=== PATIENT | female | born 1980 | race Caucasian/White ===

== ENCOUNTER 2017-03-13 01:36 | Emergency (ER) | payer MEDICAID, OTHER ==
[~2017-03-13] VITALS: Ht 157.5 cm; Wt 72.0 kg
[~2017-03-13 01:36] MED LIST: CALC-649 PO; FERR27TA PO; FOLI0.4T2 PO; METF-480 PO; METF500T4 PO; PREN1TAB49 PO
[2017-03-13 01:41] VITALS: Ht 157.5 cm; Wt 72.0 kg
[2017-03-13] MEDS ORDERED: ACETAMINOPHEN 500 MG TAB PO STA (02:05)
[2017-03-13] MEDS ORDERED: LIDOCAINE 1% (MDV) 20 ML INJ ONE (02:23)
[2017-03-13] MEDS ORDERED: CEFTRIAXONE 1 GM INJ IM ONE (02:30)
[2017-03-13] MEDS ORDERED: IBUPROFEN 800 MG TAB PO ONE (02:30)
[2017-03-13] MEDS ORDERED: LIDOCAINE 1% (MDV) 20 ML INJ SC ONE (02:30)
--- NOTE | 2017-03-13 02:40 | ERD ---
ER Documentation Chief Complaint Date/Time DATE: 03/13/17 TIME: 02:00 Chief Complaint fever/chills/body aches x 3 days HPI 36-year-old female presents emergency department for fever, chills, generalized body ache for 3 days. She also added that she has productive cough for more than 3 days. LMP: Stated that it just started. A0. Denies headache, dizziness, blurred vision, neck pain, neck stiffness, throat pain, difficulty swallowing, chest pain, abdominal pain, nausea, vomiting, constipation, diarrhea, loss of bowel bladder control, dysuria, vaginal bleeding , vaginal discharge, recent long travel, recent travel, recent exposure to any illness, recent antibiotic use in the last 3 months, numbness or tingling sensation, difficulty walking. No known drug allergies. No past medical history. Surgery: . Does not take any prescription medication at home. Social: Works as a optimization specialist. Denies smoking, use of alcohol, use of illegal drugs. ROS All systems reviewed and are negative except as per history of present illness. Medications Home Meds Active Scripts Acetaminophen* (Tylophen*) 500 Mg Capsule, 1 CAP PO Q6H Y for PAIN AND OR ELEVATED TEMP, #20 CAP Prov:JOLIEASHLEYLIANNE 03/13/17 Albuterol Sulfate* (Proair HFA*) 8.5 Gm Hfa.aer.ad, 2 PUFF INH Q4, #1 INHALER Prov:JOLIEASHLEYLIANNE 03/13/17 Ibuprofen* (Motrin*) 800 Mg Tab, 800 MG PO Q8 Y for PAIN AND OR ELEVATED TEMP, # 30 TAB Prov:HARJINDERMIRIANVIJAYREAGAN Yasmeen 03/13/17 Amoxicillin/Potassium Clav (Amox-Clav 875-125 mg Tablet) 875-125 mg Tab, 1 TAB PO BID for 7 Days, #14 TAB Prov:JOLIEASHLEYLIANNE 03/13/17 Reported Medications Folic Acid* (Folic Acid*) 0.4 Mg Tablet, 0.4 MG PO DAILY 06/08/12 Calcium Carbonate (Calcium) 1 Tab Tablet, 1 TAB PO DAILY 06/08/12 Ferrous Sulfate (Iron) 1 Tab Tablet, 1 TAB PO DAILY 06/08/12 Vits W-Ca,Fe,Fa(<1MG) () 1 Tab Tablet, 1 TAB PO DAILY 06/08/12 Metformin* (Glucophage*) 850 Mg Tablet, 850 MG PO PM 06/08/12 Metformin* (Glucophage*) 500 Mg Tab, 500 MG PO AM 06/08/12 Allergies Allergies: Coded Allergies: tomato (Verified Allergy, Unknown, RASH ON CHEEKS, ARMS, 03/13/17) PMhx/Soc History of Surgery: No Anesthesia Reaction: No Hx Neurological Disorder: No Hx Respiratory Disorders: No Hx Cardiac Disorders: No Hx Psychiatric Problems: No Hx Miscellaneous Medical Probl: No Hx Alcohol Use: No Hx Substance Use: No Hx Tobacco Use: No Smoking Status: Never smoker Physical Exam Vitals Vital Signs Date Time Temp Pulse Resp B/P Pulse Ox O2 Delivery O2 Flow Rate FiO2 03/13/17 01:41 99.9 119 20 132/85 98 Physical Exam Const: [] Head: Atraumatic Eyes: Normal Conjunctiva ENT: Normal External Ears, Nose and Mouth. Left ear: TM is erythematous. No bleeding. No discharge. Right ear: TM is erythematous. No bleeding. No discharge. No hearing loss bilaterally. Frontal and maxillary sinus has tenderness to palpation. Throat: Uvula is midline nondisplaced. Tonsils are + 1 bilaterally without redness and without exudates. Tolerating secretions. Patent airway. Speaks full and clear sentences. Neck: Full range of motion..~ No meningismus. Resp: Clear to auscultation bilaterally Cardio: Regular rate and rhythm, no murmurs Abd: Soft, non tender, non distended. Normal bowel sounds Skin: No petechiae or rashes Back: No midline or flank tenderness Ext: No cyanosis, or edema Neur: Awake and alert Psych: Normal Mood and Affect Results 24 hrs Laboratory Tests Test 03/13/17 02:25 Urine Color RED Urine Clarity SLIGHTLY CLOUDY Urine pH 6.0 Urine Specific Wrens 1.018 Urine Ketones 1+mg/dL Urine Nitrite NEGATIVEmg/dL Urine Bilirubin NEGATIVEmg/dL Urine Urobilinogen 1+mg/dL Urine Leukocyte Esterase 1+Ada/ul Urine Microscopic RBC > 182/HPF Urine Microscopic WBC 8/HPF Urine Squamous Epithelial Cells FEW/HPF Urine Bacteria FEW/HPF Urine Hemoglobin 3+mg/dL Urine Glucose 3+mg/dL Urine Total Protein 2+mg/dl Current Medications Medications (Trade) Dose Ordered Sig/Erick Route PRN Reason Start Time Stop Time Status Last Admin Dose Admin Acetaminophen (Tylenol Tab) 1,000 mg ONCE STAT PO 03/13/17 02:05 03/13/17 02:07 DC 03/13/17 02:27 Ibuprofen (Motrin) 800 mg ONCE ONCE PO 03/13/17 02:30 03/13/17 02:31 DC 03/13/17 02:27 Ceftriaxone Sodium (Rocephin) 1 gm ONCE ONCE IM 03/13/17 02:30 03/13/17 02:31 DC 03/13/17 02:27 Lidocaine (Xylocaine 1% (Mdv) 20 ml) 20 ml STK-MED ONCE .ROUTE 03/13/17 02:23 03/13/17 02:24 DC Lidocaine (Xylocaine 1% (Mdv) 20 ml) 20 ml ONCE ONCE SC 03/13/17 02:30 03/13/17 02:31 DC 03/13/17 02:28 Procedures/MDM 36-year-old female presents emergency department for fever, chills, generalized body ache for 3 days. She also added that she has productive cough for more than 3 days. LMP: Stated that it just started. A0. Denies headache, dizziness, blurred vision, neck pain, neck stiffness, throat pain, difficulty swallowing, chest pain, abdominal pain, nausea, vomiting, constipation, diarrhea, loss of bowel bladder control, dysuria, vaginal bleeding , vaginal discharge, recent long travel, recent travel, recent exposure to any illness, recent antibiotic use in the last 3 months, numbness or tingling sensation, difficulty walking. No known drug allergies. No past medical history. Surgery: . Does not take any prescription medication at home. Social: Works as a optimization specialist. Denies smoking, use of alcohol, use of illegal drugs. Physical exam: Left ear: TM is erythematous. No bleeding. No discharge. Right ear: TM is erythematous. No bleeding. No discharge. No hearing loss bilaterally. Frontal and maxillary sinus has tenderness to palpation. Throat: Uvula is midline nondisplaced. Tonsils are +1 bilaterally without redness and without exudates. Tolerating secretions. Patent airway. Speaks full and clear sentences. Respirations even and unlabored. Lung sounds are clear to auscultation. Active bowel sounds. There is no right upper/right lower/ epigastric/left upper/left lower abdominal tenderness and light and deep palpation. Negative on Rovsing's sign. Negative Neva sign. Negative and psoas sign. No peritoneal signs. No CVA tenderness. Able to jump 10 times without developing lower abdominal pain. Negative on Rovsing sign. Ambulatory with steady gait and without difficulty and without pain. Disease process was explained to the patient and family member. They both verbalized understanding and agreed with diagnostic test, treatment, plan of care, follow-up care. POC urine : Negative. Urinalysis: Urinary tract infection. Treatment: Ceftriaxone 1 g IM. Tylenol. Motrin. Reevaluation: Denies headache, dizziness, neck pain, throat pain, difficulty swallowing, shoulder pain, chest pain, back pain, abdominal pain, nausea, vomiting. No episode of emesis in the emergency department. Respirations even and unlabored. Lung sounds are clear to auscultation. Active bowel sounds. There is no right upper/right lower/epigastric/left upper/left lower abdominal tenderness and light and deep palpation. Negative on Rovsing's sign. Negative Neva sign. Negative and psoas sign. No peritoneal signs. No CVA tenderness. Able to jump 10 times without developing lower abdominal pain. Negative on Rovsing sign. Ambulatory with steady gait and without difficulty and without pain. Differential diagnosis: Sepsis versus viral syndrome versus pneumonia versus otitis media versus otitis externa versus sinusitis versus strep throat versus pyelonephritis versus urinary tract infection Final diagnosis: Otitis media, sinusitis, UTI Prescription: Renal. Motrin. Augmentin. Pro-air. Follow-up with primary care physician the next 24-48 hours. Come back here in the emergency department for any new symptoms or any worsening of symptoms. All questions and concerns were answered. Patient verbalized understanding and agreed with the plan of care. Hemodynamically stable on discharge. Departure Diagnosis: Primary Impression: Otitis media Additional Impressions: Sinusitis UTI (urinary tract infection) Condition: Stable Additional Instructions: Follow-up with primary care physician the next 24-48 hours. Come back here in the emergency department for any new symptoms or any worsening of symptoms. All questions and concerns were answered. Patient verbalized understanding and agreed with the plan of care. LIANNE BOYKIN Mar 13, 2017 02:40
[2017-03-13] MEDS ORDERED: AMOX1TAB10 PO (03:33)
[2017-03-13] MEDS ORDERED: IBUP800T25 PO (03:33)
[2017-03-13] MEDS ORDERED: ALBU8.5H3 INH (03:34)
[2017-03-13] MEDS ORDERED: ACET500C5 PO (03:35)
[2017-03-13 03:36] LABS: ADD UMIC YES; UR ASCORBIC ACID NEGATIVE (NEGATIVE); UR BACTERIA FEW /HPF (NONE SEEN); UR BILIRUBIN (Dip) NEGATIVE (NEGATIVE); UR BLOOD (Dip) 3+ mg/dL (NEGATIVE); UR CLARITY SLIGHTLY CLOUDY (CLEAR); UR COLOR RED (YELLOW); UR GLUCOSE (Dip) 3+ mg/dL (NEGATIVE); UR KETONES (Dip) 1+ mg/dL (NEGATIVE); UR LEUKOCYTE ESTERASE (Dip) 1+ Leu/ul (NEGATIVE); UR NITRITE (Dip) NEGATIVE (NEGATIVE); UR RBC > 182 /HPF (0-5); UR SPECIFIC GRAVITY (Dip) 1.018 (1.003-1.030); UR SQUAMOUS EPITHELIAL CELL FEW /HPF (FEW); UR TOTAL PROTEIN (Dip) 2+ mg/dl (NEGATIVE); UR UROBILINOGEN (Dip) 1+ mg/dL (NEGATIVE)
== END 2017-03-13 03:46 | disposition home or self-care (01) ==
LOC: FTE 01:36
DX: H66.93 Otitis media, unspecified, bilateral (principal); N39.0 Urinary tract infection, site not specified; J32.9 Chronic sinusitis, unspecified; Z79.84 Long term (current) use of oral hypoglycemic drugs
CPT/HCPCS: 81001; 96372; J0696; Z7502; Z7610

== ENCOUNTER 2017-08-14 19:47 | Emergency (ER) | END 2017-08-15 06:11 | disposition short-term general hospital (02) ==